=== PATIENT | male | born 1940 | race Caucasian/White ===

== ENCOUNTER → 2017-01-15 | Day surgery (SDC) | payer MEDICARE, OTHER ==
[~2017-01-15] VITALS: Ht 180.3 cm; Wt 93.0 kg
[~2017-01-15] MED LIST: ALFUZOSIN HCL E10 MG PO; ASPIR LOW81 MG PO; COZAAR25 M1 PO; OMEGA 3 FISH O1 EACH PO; TOPROL XL25 MG PO; ZOCOR40 MG PO
--- NOTE | ~2017-01-15 | PROC NOTE ---
[place], [place] PROCEDURE NOTE NAME: DAKSHA GALEAS JR UNIT #: [id number] ROOM: DOCTOR: AJ ZIMMERMANSOPHIA BIRTHDATE: [birth year] DOS: 01/15/2017 PREOPERATIVE DIAGNOSIS: Lower gastrointestinal bleed, history of partial colectomy for malignancy. POSTOPERATIVE DIAGNOSIS: Internal hemorrhoids, normal anastomosis. PROCEDURE: Colonoscopy. ENDOSCOPIST: Sophia Wild M.D. STEVEDORING SUPERVISOR: [id number]. ANESTHESIA: MAC. INDICATIONS: This is a 76-year-old gentleman with a history of lower GI bleed and internal hemorrhoids as well as a partial colectomy in the past for malignancy, who is here for the above-mentioned procedure. The procedure and its complications explained to the patient in detail preoperatively. Complications that were discussed included, but were not limited to bleeding, colon perforation, and missed lesions. He agreed to proceed. DESCRIPTION OF PROCEDURE: After identifying the patient, the patient was brought to the endoscopy suite and placed in the left lateral position. After time-out procedure was called, IV sedation was administered and a digital rectal exam was performed, which revealed internal hemorrhoids (grade 3), but there was no active bleeding that could be seen on the examining finger. There were no masses that could be felt with the examining finger. At this point, an adult colonoscope was now introduced into the anal canal and advanced sequentially into the rectum, sigmoid colon, descending colon, transverse colon, and ascending colon up to the cecum. The anastomosis was visualized and was within normal limits. The prep was within normal limits. Upon reaching the cecum, the scope was withdrawn. Total withdrawal time was approximately 6 minutes and 45 seconds. There were no obvious mucosal lesions that were identified. Upon retroflexion of the scope in the rectum, there was found to be internal hemorrhoids with no active bleeding. The scope was withdrawn and the patient was taken to the recovery room in stable fashion. There were no complications. Dr. Sophia Wild, the attending endoscopist, was present throughout the operating case. Based on these findings, the patient is recommended to not have any more colonoscopies since he is already 76 years old unless he has new symptoms related to his large intestine. [place], [place] PROCEDURE NOTE NAME: DAKSHA GALEAS JR UNIT #: [id number] ROOM: DOCTOR: SOPHIA WILD MD BIRTHDATE: [birth year] Sophia Wild MD CM:PROCNOTE:PROCEDURE NOTE [id number] SOPHIA WILD MD
== END | disposition home or self-care (01) ==
LOC: SDC 01-11 13:15
DX: K64.8 Other hemorrhoids (principal); K92.2 Gastrointestinal hemorrhage, unspecified; I25.2 Old myocardial infarction; I25.10 Atherosclerotic heart disease of native coronary artery without angina pectoris; Z98.0 Intestinal bypass and anastomosis status; Z85.038 Personal history of other malignant neoplasm of large intestine; Z85.828 Personal history of other malignant neoplasm of skin; Z83.3 Family history of diabetes mellitus; Z82.3 Family history of stroke; Z82.49 Family history of ischemic heart disease and other diseases of the circulatory system

== ENCOUNTER → 2017-01-29 | Day surgery (SDC) | payer MEDICARE, OTHER ==
[2017-01-25 11:15] VITALS: BP 117/62
[~2017-01-29] VITALS: Ht 182.8 cm; Wt 93.9 kg
[2017-01-29] VITALS (9 sets, daily range): BP systolic 126–194; BP diastolic 82–109
[~2017-01-29] MED LIST changes: +NORCO 5-325 TA1 EACH PO; +ZOCOR20 MG PO
--- NOTE | ~2017-01-29 | O ---
[place], [place] OPERATIVE NOTE NAME: [facility]AS JR [id number] UNIT #: [id number] ROOM: DOCTOR: SOPHIA WILD MD BIRTHDATE: [birth year] DOS: 01/29/2017 PREOPERATIVE DIAGNOSIS: Grade 2 internal hemorrhoids. POSTOPERATIVE DIAGNOSIS: Grade 2 internal hemorrhoids. PROCEDURE: Doppler guided hemorrhoidal artery ligation, rectoanal repair (4 o'clock position). SURGEON: Sophia Wild MD CAN HANDLER: None. ANESTHESIA: LMA. INDICATIONS: This is a 76-year-old gentleman with a history of symptomatic, grade 2 internal hemorrhoids who is here for the above-mentioned procedure. The procedure and its complications were explained to the patient in detail. Complications that were discussed included but were not limited to bleeding, recurrence and prolonged pain. He agreed to proceed. DESCRIPTION OF PROCEDURE: After identifying the patient, the patient was brought to the operating suite and laid in the supine position. After induction of general anesthesia, he was placed in lithotomy position and the parts were then painted and draped in the usual sterile fashion. A digital rectal exam was performed, which was within normal limits. The Doppler ligator probe was introduced and at 1, 3, 5, 7, 9 and 11 o'clock positions, arteries were identified with the help of Doppler signal and these were ligated with the help of 0 Vicryl in an interrupted fashion. At this point, the probe was removed and was readjusted and reinserted into the anal canal with the window which opened at approximately 4 o'clock position where the prolapsed segment of the hemorrhoid was visualized. With the help of 0 Vicryl, rectoanal repair was performed in order to repair the part of the internal hemorrhoids that was prolapsing. This was done in a running fashion. After that was performed, the suture was cut and the probe was removed. Rectal exam was performed and there was no bleeding that was visualized. A block with the help of 1% lidocaine with epinephrine was placed in a circumanal fashion for pain control. The patient was then placed back in a supine position and transferred after extubation to the recovery room. There were no complications. Dr. Sophia Wild, the attending surgeon, was present throughout the operating case. [place], [place] OPERATIVE NOTE NAME: DAKSHA GALEAS JR UNIT #: [id number] ROOM: DOCTOR: SOPHIA WILD MD BIRTHDATE: [birth year] Sophia Wild MD CM:OPRECORD:OPERATIVE NOTE [id number] SOPHIA WILD MD 01/29/17 1042 interface
== END | disposition home or self-care (01) ==
LOC: SDC 01-22 11:00
DX: K64.1 Second degree hemorrhoids (principal); I25.2 Old myocardial infarction; I25.10 Atherosclerotic heart disease of native coronary artery without angina pectoris; Z85.828 Personal history of other malignant neoplasm of skin; E78.00 Pure hypercholesterolemia, unspecified; Z83.3 Family history of diabetes mellitus; Z82.3 Family history of stroke; Z82.49 Family history of ischemic heart disease and other diseases of the circulatory system

== ENCOUNTER → 2017-02-02 | Outpatient (CLI) | payer MEDICARE, OTHER ==
[2017-02-02 11:17] LABS: BILIRUBIN NEGATIVE (NEGATIVE); BLOOD NEGATIVE (NEGATIVE); CLARITY CLEAR (CLEAR); COLOR YELLOW (YELLOW); GLUCOSE NEGATIVE (NEGATIVE); KETONE NEGATIVE (NEGATIVE); LEUKO ESTERASE NEGATIVE (NEGATIVE); NITRITE NEGATIVE (NEGATIVE); PROTEIN NEGATIVE (NEGATIVE); UROBILINOGEN 0.2 E.U./dl (0.2-1.0)
[2017-02-02 11:24] LABS: MUCOUS 1+; URINE REFLEX COMMENT NO (NO); WBC 0-2 wbc/hpf (0-5)
== END | disposition home or self-care (01) ==
LOC: LAB 10:50
PROVIDERS: Surgery
DX: R39.9 Unspecified symptoms and signs involving the genitourinary system (principal)

== ENCOUNTER → 2018-01-10 | Outpatient (CLI) | payer MEDICARE, OTHER ==
[2018-01-10 10:02] LABS: BASO # 0.1 10*3/uL (0.0-0.1); BASO % 0.8 % (0.0-1.0); EOS # 0.2 10*3/uL (0.0-0.4); EOS % 2.6 % (1.0-4.0); HEMATOCRIT 42.9 % (42.0-52.0); HEMOGLOBIN 14.1 g/dl (14.0-18.0); LYMPH # 1.5 10*3/uL (1.3-4.4); LYMPH % 23.1 % (27.0-41.0); MEAN CELL VOLUME 92.1 fl (80.0-94.0); MEAN CORPUSCULAR HGB 30.3 pg (27.0-31.0); MEAN CORPUSCULAR HGB CONC 32.9 g/dl (33.0-37.0); MONO # 0.8 10*3/uL (0.1-1.0); MONO % 11.6 % (3.0-9.0); NEUT % 61.6 % (47.0-73.0); PLATELET COUNT AUTOMATED 138 10*3/uL (130-400); RED BLOOD COUNT 4.66 10*6/uL (4.50-5.90); RED CELL DISTRI WIDTH 13.2 % (0-14.5); WHITE BLOOD COUNT 6.5 10*3/uL (4.8-10.8)
[2018-01-10 10:36] LABS: ALBUMIN 3.7 gm/dl (3.1-4.5); ALKALINE PHOSPHATASE 61 U/L (45-117); BILIRUBIN, DIRECT 0.2 mg/dL (0.0-0.2); BUN 14 mg/dl (7-24); CHLORIDE 106 mmol/L (98-107); CHOLESTEROL 252 mg/dL (<200); CREATININE 1.22 mg/dL (0.70-1.30); HDL CHOLESTEROL 52 mg/dl (40-60); LDL CHOLESTEROL 175 mg/dL (9-159); POTASSIUM 4.5 mmol/L (3.5-5.1); SGOT/AST 17 IU/L (3-35); SGPT/ALT 18 U/L (12-78); SODIUM 141 mmol/L (136-145); THYROXINE (T4) TOTAL 7.6 ug/dl (4.5-12.1); TOTAL PROTEIN 7.2 gm/dL (6.4-8.2); TRIGLYCERIDES 124 mg/dl (<150); VLDL CHOLESTEROL 25 mg/dL (6-40)
== END | disposition home or self-care (01) ==
LOC: LAB 09:43
PROVIDERS: Family Medicine
DX: I10 Essential (primary) hypertension (principal); N40.0 Benign prostatic hyperplasia without lower urinary tract symptoms

== ENCOUNTER → 2018-02-04 | Outpatient (CLI) | payer MEDICARE, OTHER | END | disposition home or self-care (01) | LOC: RAD 09:56 | DX: M51.36 Other intervertebral disc degeneration, lumbar region (principal); M40.56 Lordosis, unspecified, lumbar region; R10.9 Unspecified abdominal pain ==

== ENCOUNTER 2018-11-19 17:15 | Emergency (ER) | payer MEDICARE, OTHER ==
[~2018-11-19] VITALS: Ht 182.8 cm; Wt 90.7 kg
[2018-11-19] MEDS ORDERED: NAPROSYN500 MG PO (17:31)
[2018-11-19] MEDS ORDERED: KEFLEX500 M1 PO (17:31)
== END 2018-11-19 17:46 | disposition home or self-care (01) ==
LOC: ED 17:15
DX: S61.211A Laceration without foreign body of left index finger without damage to nail, initial encounter (principal); R03.0 Elevated blood-pressure reading, without diagnosis of hypertension; Z23 Encounter for immunization; Z79.899 Other long term (current) drug therapy; Z79.82 Long term (current) use of aspirin; W45.8XXA Other foreign body or object entering through skin, initial encounter; Y93.89 Activity, other specified; Y92.89 Other specified places as the place of occurrence of the external cause; Y99.8 Other external cause status

== ENCOUNTER → 2018-12-23 | Outpatient (CLI) | payer MEDICARE, OTHER ==
[~2018-12-23] MED LIST changes: +KEFLEX500 M1 PO; +NAPROSYN500 MG PO
[2018-12-23 10:08] LABS: ALBUMIN 3.4 gm/dl (3.1-4.5); ALKALINE PHOSPHATASE 54 U/L (45-117); BASO # 0.1 10*3/uL (0.0-0.1); BASO % 0.9 % (0.0-1.0); BILIRUBIN, DIRECT 0.2 mg/dL (0.0-0.2); BUN 16 mg/dl (7-24); CHLORIDE 108 mmol/L (98-107); CHOLESTEROL 175 mg/dL (<200); CREATININE 1.08 mg/dL (0.70-1.30); EOS # 0.2 10*3/uL (0.0-0.4); EOS % 3.8 % (1.0-4.0); HDL CHOLESTEROL 52 mg/dl (40-60); HEMOGLOBIN 13.5 g/dl (14.0-18.0); LDL CHOLESTEROL 100 mg/dL (9-159); LYMPH # 1.4 10*3/uL (1.3-4.4); LYMPH % 24.7 % (27.0-41.0); MEAN CELL VOLUME 92.8 fl (80.0-94.0); MEAN CORPUSCULAR HGB 30.5 pg (27.0-31.0); MEAN CORPUSCULAR HGB CONC 32.9 g/dl (33.0-37.0); MEAN PLATELET VOLUME 10.3 fl (9.6-12.3); MONO # 0.7 10*3/uL (0.1-1.0); MONO % 11.7 % (3.0-9.0); NEUT # 3.4 10*3/uL (2.3-7.9); NEUT % 58.4 % (47.0-73.0); PLATELET COUNT AUTOMATED 140 10*3/uL (130-400); POTASSIUM 4.1 mmol/L (3.5-5.1); RED BLOOD COUNT 4.42 10*6/uL (4.50-5.90); RED CELL DISTRI WIDTH 13.1 % (0-14.5); SGOT/AST 16 IU/L (3-35); SGPT/ALT 22 U/L (12-78); SODIUM 143 mmol/L (136-145); TOTAL PROTEIN 7.2 gm/dL (6.4-8.2); TRIGLYCERIDES 117 mg/dl (<150); VLDL CHOLESTEROL 23 mg/dL (6-40); WHITE BLOOD COUNT 5.8 10*3/uL (4.8-10.8)
== END | disposition home or self-care (01) ==
LOC: LAB 08:49
PROVIDERS: Family Medicine
DX: I25.10 Atherosclerotic heart disease of native coronary artery without angina pectoris (principal); I10 Essential (primary) hypertension; E78.5 Hyperlipidemia, unspecified

== ENCOUNTER → 2020-01-13 | Outpatient (CLI) | payer MEDICARE ==
[2020-01-13 09:50] LABS: BASO # 0.1 10*3/uL (0.0-0.1); BASO % 0.8 % (0.0-1.0); EOS # 0.2 10*3/uL (0.0-0.4); EOS % 3.8 % (1.0-4.0); HEMATOCRIT 45.1 % (42.0-52.0); HEMOGLOBIN 14.5 g/dl (14.0-18.0); LYMPH # 1.6 10*3/uL (1.3-4.4); LYMPH % 26.6 % (27.0-41.0); MEAN CORPUSCULAR HGB 29.9 pg (27.0-31.0); MEAN CORPUSCULAR HGB CONC 32.2 g/dl (33.0-37.0); MEAN PLATELET VOLUME 10.2 fl (9.6-12.3); MONO # 0.8 10*3/uL (0.1-1.0); MONO % 12.7 % (3.0-9.0); NEUT # 3.4 10*3/uL (2.3-7.9); NEUT % 55.9 % (47.0-73.0); PLATELET COUNT AUTOMATED 145 10*3/uL (130-400); RED BLOOD COUNT 4.85 10*6/uL (4.50-5.90); WHITE BLOOD COUNT 6.1 10*3/uL (4.8-10.8)
[2020-01-13 10:20] LABS: ALBUMIN 3.6 gm/dl (3.1-4.5); ALKALINE PHOSPHATASE 57 U/L (45-117); BILIRUBIN, DIRECT 0.2 mg/dL (0.0-0.2); BUN 16 mg/dl (7-24); CHLORIDE 105 mmol/L (98-107); CHOLESTEROL 166 mg/dL (<200); CREATININE 1.15 mg/dL (0.70-1.30); HDL CHOLESTEROL 57 mg/dl (40-60); LDL CHOLESTEROL 90 mg/dL (9-159); POTASSIUM 4.6 mmol/L (3.5-5.1); SGOT/AST 23 IU/L (3-35); SGPT/ALT 27 U/L (12-78); SODIUM 139 mmol/L (136-145); THYROXINE (T4) TOTAL 9.1 ug/dl (4.5-12.1); TOTAL PROTEIN 7.1 gm/dL (6.4-8.2); TRIGLYCERIDES 94 mg/dl (<150); VLDL CHOLESTEROL 19 mg/dL (6-40)
== END | disposition home or self-care (01) ==
LOC: LAB 09:28
PROVIDERS: Family Medicine
DX: Z00.00 Encounter for general adult medical examination without abnormal findings (principal); Z12.5 Encounter for screening for malignant neoplasm of prostate; I10 Essential (primary) hypertension; E55.9 Vitamin D deficiency, unspecified; Z79.899 Other long term (current) drug therapy

== ENCOUNTER 2020-11-01 11:18 | Emergency (ER) | payer MEDICARE ==
[~2020-11-01] VITALS: Ht 180.3 cm; Wt 81.6 kg
[2020-11-01] MEDS ORDERED: ZITHROMAX250 MG PO (13:44)
[2020-11-01] MEDS ORDERED: TESSALON PERLE100 M1 PO (13:44)
== END 2020-11-01 13:48 | disposition home or self-care (01) ==
LOC: ED 11:18
DX: U07.1 COVID-19 (principal); Z79.899 Other long term (current) drug therapy; Z79.82 Long term (current) use of aspirin

== ENCOUNTER 2020-11-27 03:53 | Emergency (ER) | payer MEDICARE ==
[~2020-11-27] VITALS: Ht 180.3 cm; Wt 83.9 kg
[~2020-11-27 03:53] MED LIST changes: +TESSALON PERLE100 M1 PO; +ZITHROMAX250 MG PO
[2020-11-27 04:20] LABS: BILIRUBIN 1+ (Negative); BLOOD 2+ (Negative); CLARITY Clear (Clear); COLOR Orange (Yellow); GLUCOSE Negative (Negative); KETONE Negative (Negative); LEUKO ESTERASE 1+ (Negative); NITRITE Positive (Negative); SPECIFIC GRAVITY 1.015 (1.001-1.030)
[2020-11-27 04:26] LABS: BASO % 0.1 % (0.0-1.0); EOS # 0.1 10*3/uL (0.0-0.4); HEMATOCRIT 36.9 % (42.0-52.0); LYMPH # 0.8 10*3/uL (1.3-4.4); LYMPH % 10.2 % (27.0-41.0); MEAN CORPUSCULAR HGB 29.7 pg (27.0-31.0); MEAN CORPUSCULAR HGB CONC 32.2 g/dl (33.0-37.0); MEAN PLATELET VOLUME 10.4 fl (9.6-12.3); MONO # 0.8 10*3/uL (0.1-1.0); MONO % 10.7 % (3.0-9.0); PLATELET COUNT AUTOMATED 110 10*3/uL (130-400); RED BLOOD COUNT 4.01 10*6/uL (4.50-5.90); RED CELL DISTRI WIDTH 14.4 % (0-14.5); WHITE BLOOD COUNT 7.8 10*3/uL (4.8-10.8)
[2020-11-27 04:36] LABS: RBC 21-30 rbc/hpf (0-2)
[2020-11-27 04:37] LABS: BACTERIA TRACE
[2020-11-27 04:42] LABS: BUN 18 mg/dl (7-24); CHLORIDE 102 mmol/L (98-107); CREATININE 1.14 mg/dL (0.70-1.30); POTASSIUM 4.1 mmol/L (3.5-5.1); SODIUM 134 mmol/L (136-145)
[2020-11-27] MEDS ORDERED: CIPRO500 MG PO (04:49)
== END 2020-11-27 05:01 | disposition home or self-care (01) ==
LOC: ED 03:53
PROVIDERS: Internal Medicine
DX: N40.0 Benign prostatic hyperplasia without lower urinary tract symptoms (principal); D64.9 Anemia, unspecified; N39.0 Urinary tract infection, site not specified; R33.9 Retention of urine, unspecified; Z79.899 Other long term (current) drug therapy; Z79.82 Long term (current) use of aspirin

== ENCOUNTER 2020-11-30 18:01 | Emergency (ER) | payer MEDICARE ==
[~2020-11-30] VITALS: Ht 180.3 cm; Wt 83.9 kg
[~2020-11-30 18:01] MED LIST changes: +CIPRO500 MG PO
[2020-11-30 18:40] LABS: BASO % 0.2 % (0.0-1.0); EOS # 0.1 10*3/uL (0.0-0.4); HEMATOCRIT 32.5 % (42.0-52.0); LYMPH # 0.6 10*3/uL (1.3-4.4); LYMPH % 12.3 % (27.0-41.0); MEAN CELL VOLUME 93.7 fl (80.0-94.0); MEAN PLATELET VOLUME 11.1 fl (9.6-12.3); MONO # 0.6 10*3/uL (0.1-1.0); MONO % 12.3 % (3.0-9.0); NEUT # 3.6 10*3/uL (2.3-7.9); NEUT % 72.8 % (47.0-73.0); PLATELET COUNT AUTOMATED 95 10*3/uL (130-400); RED BLOOD COUNT 3.47 10*6/uL (4.50-5.90); RED CELL DISTRI WIDTH 15.1 % (0-14.5)
[2020-11-30 18:51] LABS: BILIRUBIN 1+ (Negative); BLOOD 1+ (Negative); CLARITY Turbid (Clear); COLOR Red (Yellow); GLUCOSE Negative (Negative); KETONE Negative (Negative); LEUKO ESTERASE 3+ (Negative); NITRITE Positive (Negative); SPECIFIC GRAVITY 1.025 (1.001-1.030); UROBILINOGEN 0.2 E.U./dl (0.0-1.0)
[2020-11-30 18:52] LABS: ACT PARTIAL THROMBO TIME 26.5 SECONDS (20.0-32.1); BUN 19 mg/dl (7-24); CHLORIDE 107 mmol/L (98-107); CREATININE 1.19 mg/dL (0.70-1.30); POTASSIUM 3.9 mmol/L (3.5-5.1); SODIUM 138 mmol/L (136-145)
[2020-11-30 18:54] LABS: ALBUMIN 2.8 gm/dl (3.1-4.5); BILIRUBIN, DIRECT 0.2 mg/dL (0.0-0.2); TOTAL PROTEIN 6.2 gm/dL (6.4-8.2)
[2020-11-30 19:05] LABS: RBC TNTC rbc/hpf (0-2)
== END 2020-11-30 22:00 | disposition short-term general hospital (02) ==
LOC: ED 18:01
PROVIDERS: Emergency Medicine
DX: U07.1 COVID-19 (principal); R31.9 Hematuria, unspecified; R33.9 Retention of urine, unspecified; I25.2 Old myocardial infarction; I25.10 Atherosclerotic heart disease of native coronary artery without angina pectoris; E78.00 Pure hypercholesterolemia, unspecified; Z79.899 Other long term (current) drug therapy; Z79.2 Long term (current) use of antibiotics; Z79.82 Long term (current) use of aspirin; Z98.61 Coronary angioplasty status

== ENCOUNTER → 2020-12-09 | Outpatient (CLI) | payer MEDICARE ==
[2020-12-09 11:13] LABS: HEMATOCRIT 33.2 % (42.0-52.0); MEAN CELL VOLUME 93.8 fl (80.0-94.0); MEAN CORPUSCULAR HGB 29.7 pg (27.0-31.0); MEAN CORPUSCULAR HGB CONC 31.6 g/dl (33.0-37.0); MEAN PLATELET VOLUME 10.5 fl (9.6-12.3); RED BLOOD COUNT 3.54 10*6/uL (4.50-5.90); RED CELL DISTRI WIDTH 14.7 % (0-14.5); WHITE BLOOD COUNT 4.4 10*3/uL (4.8-10.8)
[2020-12-09 11:26] LABS: BUN 9 mg/dl (7-24); CHLORIDE 107 mmol/L (98-107); POTASSIUM 3.7 mmol/L (3.5-5.1); SODIUM 141 mmol/L (136-145)
== END | disposition home or self-care (01) ==
LOC: LAB 10:40
PROVIDERS: ATTEND Family Medicine
DX: Z01.818 Encounter for other preprocedural examination (principal); I25.10 Atherosclerotic heart disease of native coronary artery without angina pectoris; R97.20 Elevated prostate specific antigen [PSA]; Z79.899 Other long term (current) drug therapy

== ENCOUNTER → 2021-03-20 | Outpatient (CLI) | payer MEDICARE | END | disposition home or self-care (01) | LOC: US 00:12 | PROVIDERS: ATTEND Family Medicine | DX: M71.21 Synovial cyst of popliteal space [Baker], right knee (principal); I73.9 Peripheral vascular disease, unspecified ==

== ENCOUNTER → 2022-03-13 | Outpatient (CLI) | payer MEDICARE, OTHER | END | disposition home or self-care (01) | LOC: RESCLI 10:44 | PROVIDERS: ATTEND Internal Medicine | DX: Z76.89 Persons encountering health services in other specified circumstances (principal); I48.91 Unspecified atrial fibrillation; I25.10 Atherosclerotic heart disease of native coronary artery without angina pectoris; I50.9 Heart failure, unspecified; I11.0 Hypertensive heart disease with heart failure; Z79.899 Other long term (current) drug therapy; Z79.82 Long term (current) use of aspirin ==

== ENCOUNTER → 2022-10-29 | Outpatient (CLI) | payer MEDICARE, OTHER ==
[2022-10-29 10:34] LABS: BASO # 0.1 10*3/uL (0.0-0.1); BASO % 0.7 % (0.0-1.0); EOS # 0.2 10*3/uL (0.0-0.4); EOS % 2.5 % (1.0-4.0); HEMATOCRIT 47.3 % (42.0-52.0); LYMPH # 1.4 10*3/uL (1.3-4.4); LYMPH % 19.9 % (27.0-41.0); MEAN CELL VOLUME 90.6 fl (80.0-94.0); MEAN CORPUSCULAR HGB 29.9 pg (27.0-31.0); MEAN PLATELET VOLUME 10.1 fl (9.6-12.3); MONO # 0.7 10*3/uL (0.1-1.0); MONO % 10.5 % (3.0-9.0); NEUT # 4.5 10*3/uL (2.3-7.9); NEUT % 66.1 % (47.0-73.0); PLATELET COUNT AUTOMATED 150 10*3/uL (130-400); RED BLOOD COUNT 5.22 10*6/uL (4.50-5.90); RED CELL DISTRI WIDTH 13.7 % (0-14.5); WHITE BLOOD COUNT 6.8 10*3/uL (4.8-10.8)
[2022-10-29 11:23] LABS: ALKALINE PHOSPHATASE 66 U/L (46-116); BUN 18 mg/dl (9-23); CHLORIDE 106 mmol/L (98-107); CHOLESTEROL 183 mg/dL (<200); LDL CHOLESTEROL 106 mg/dL (9-159); POTASSIUM 4.3 mmol/L (3.4-5.1); SGPT/ALT 20 U/L (10-49); TOTAL PROTEIN 7.2 gm/dL (6.0-8.0); TRIGLYCERIDES 127 mg/dl (<150)
== END | disposition home or self-care (01) ==
LOC: RESCLI 00:23
PROVIDERS: Internal Medicine; ATTEND Emergency Medicine
DX: I11.0 Hypertensive heart disease with heart failure (principal); I50.20 Unspecified systolic (congestive) heart failure; Z13.9 Encounter for screening, unspecified; N40.1 Benign prostatic hyperplasia with lower urinary tract symptoms; I25.10 Atherosclerotic heart disease of native coronary artery without angina pectoris; K21.9 Gastro-esophageal reflux disease without esophagitis; N40.0 Benign prostatic hyperplasia without lower urinary tract symptoms; E78.5 Hyperlipidemia, unspecified; Z86.711 Personal history of pulmonary embolism; Z98.890 Other specified postprocedural states; Z72.89 Other problems related to lifestyle; Z79.82 Long term (current) use of aspirin; Z79.899 Other long term (current) drug therapy

== ENCOUNTER → 2024-01-27 | Outpatient (CLI) | payer MEDICARE, OTHER ==
[2024-01-27 09:14] LABS: BASO # 0.1 10*3/uL (0.0-0.1); BASO % 0.7 % (0.0-1.0); EOS # 0.2 10*3/uL (0.0-0.4); EOS % 3.4 % (1.0-4.0); HEMATOCRIT 42.8 % (42.0-52.0); LYMPH # 1.5 10*3/uL (1.3-4.4); LYMPH % 21.6 % (27.0-41.0); MEAN CELL VOLUME 94.9 fl (80.0-94.0); MEAN CORPUSCULAR HGB 30.6 pg (27.0-31.0); MEAN CORPUSCULAR HGB CONC 32.2 g/dl (33.0-37.0); MEAN PLATELET VOLUME 10.5 fl (9.6-12.3); MONO # 0.8 10*3/uL (0.1-1.0); MONO % 12.2 % (3.0-9.0); NEUT # 4.1 10*3/uL (2.3-7.9); NEUT % 61.7 % (47.0-73.0); PLATELET COUNT AUTOMATED 152 10*3/uL (130-400); RED BLOOD COUNT 4.51 10*6/uL (4.50-5.90); RED CELL DISTRI WIDTH 13.1 % (0-14.5); WHITE BLOOD COUNT 6.7 10*3/uL (4.8-10.8)
[2024-01-27 09:41] LABS: POTASSIUM 4.8 mmol/L (3.4-5.1); TOTAL PROTEIN 7.1 gm/dL (6.0-8.0)
[2024-01-27 09:51] LABS: VITAMIN D, 25-HYDROXY 56.2 ng/mL (30-100)
== END ==
LOC: RESCLI 08:06
PROVIDERS: Student in an Organized Health Care Education/Training Program; ATTEND Family Medicine
DX: Z12.5 Encounter for screening for malignant neoplasm of prostate (principal); I25.10 Atherosclerotic heart disease of native coronary artery without angina pectoris; I50.20 Unspecified systolic (congestive) heart failure; Z13.9 Encounter for screening, unspecified; E78.5 Hyperlipidemia, unspecified; Z86.711 Personal history of pulmonary embolism; Z98.890 Other specified postprocedural states; Z79.899 Other long term (current) drug therapy

== ENCOUNTER → 2024-12-27 | Outpatient (CLI) | payer MEDICARE, OTHER | END | disposition home or self-care (01) | LOC: LAB 10:29 | PROVIDERS: ATTEND Family Medicine | DX: I25.10 Atherosclerotic heart disease of native coronary artery without angina pectoris (principal) ==

== ENCOUNTER → 2025-01-08 | Outpatient (CLI) | payer MEDICARE, OTHER | END | disposition home or self-care (01) | LOC: US 12:20 | PROVIDERS: ATTEND Urology | DX: N28.1 Cyst of kidney, acquired (principal); N32.3 Diverticulum of bladder; N40.0 Benign prostatic hyperplasia without lower urinary tract symptoms; K80.20 Calculus of gallbladder without cholecystitis without obstruction ==

== ENCOUNTER → 2025-02-23 | Outpatient (CLI) | payer MEDICARE, OTHER | END | disposition home or self-care (01) | LOC: RESCLI 14:55 | PROVIDERS: ATTEND Internal Medicine | DX: N40.1 Benign prostatic hyperplasia with lower urinary tract symptoms (principal); I25.10 Atherosclerotic heart disease of native coronary artery without angina pectoris; I11.0 Hypertensive heart disease with heart failure; I50.20 Unspecified systolic (congestive) heart failure; E78.5 Hyperlipidemia, unspecified; K21.9 Gastro-esophageal reflux disease without esophagitis; L24.9 Irritant contact dermatitis, unspecified cause; Z86.711 Personal history of pulmonary embolism; Z79.899 Other long term (current) drug therapy; Z98.890 Other specified postprocedural states ==

== ENCOUNTER → 2025-07-10 | Outpatient (CLI) | payer MEDICARE, OTHER ==
[~2025-07-10] MED LIST changes: +ALDACTONE25 M1 PO; +AMIODARONE HYD200 MG PO; +FLOMAX0.4 MG PO; +ISOSORBIDE MONO10 MG PO; +LOSARTAN POTASS25 M1 PO; +PLAVIX75 M1 PO; +PROSCAR5 M1 PO; +XARE15TA PO; +XARE20MG PO
== END ==
LOC: RAD 15:09
PROVIDERS: ATTEND Family Medicine
DX: M19.011 Primary osteoarthritis, right shoulder (principal); M77.8 Other enthesopathies, not elsewhere classified; M25.511 Pain in right shoulder

== ENCOUNTER 2025-07-12 03:29 | Inpatient (IN) | payer MEDICARE, OTHER ==
[~2025-07-12] VITALS: Ht 180.3 cm; Wt 92.1 kg
[~2025-07-12 03:29] MED LIST changes: -ALDACTONE25 M1 PO; -AMIODARONE HYD200 MG PO; -FLOMAX0.4 MG PO; -ISOSORBIDE MONO10 MG PO; -LOSARTAN POTASS25 M1 PO; -PLAVIX75 M1 PO; -PROSCAR5 M1 PO; -XARE15TA PO; -XARE20MG PO
[2025-07-12 03:37] VITALS: BP 107/53
[2025-07-12 04:06] LABS: BASO # 0.0 10*3/uL (0.0-0.1); BASO % 0.7 % (0.0-1.0); EOS # 0.3 10*3/uL (0.0-0.4); EOS % 5.1 % (1.0-4.0); MEAN CELL VOLUME 93.3 fl (80.0-94.0); MEAN CORPUSCULAR HGB 29.4 pg (27.0-31.0); MEAN PLATELET VOLUME 9.8 fl (9.6-12.3); MONO # 0.9 10*3/uL (0.1-1.0); MONO % 15.2 % (3.0-9.0); NEUT # 3.7 10*3/uL (2.3-7.9); NEUT % 64.7 % (47.0-73.0); NUCLEATED RED BLOOD CELL 0.0 % (0.0-0.0); NUCLEATED RED BLOOD CELL 0.0 10*3/uL (0.0-0.0); PLATELET COUNT AUTOMATED 174 10*3/uL (130-400); RED CELL DISTRI WIDTH 14.6 % (0-14.5)
[2025-07-12 04:23] LABS: BUN 28.0 mg/dl (9-23)
[2025-07-12] MEDS ORDERED: TRANEXAMIC ACID IN NACL,ISO-OS 100 ML IV ONE (04:25)
[2025-07-12] MEDS ORDERED: Acetaminophen/Hydrocodone 5 MG/325 MG TABLET PO PRN (06:10)
[2025-07-12] MEDS ORDERED: Ondansetron Hydrochloride 4 MG/2 ML VIAL IV PRN (06:10)
[2025-07-12] MEDS ORDERED: BISACODYL 5 MG TAB PO PRN (06:10)
[2025-07-12] MEDS ORDERED: BISACODYL 10 MG SUPP R PRN (06:10)
[2025-07-12] MEDS ORDERED: SODIUM CHLORIDE 0.9% 1,000 ML IV ONE (06:25)
[2025-07-12] MEDS ORDERED: XARE20MG PO (07:10)
[2025-07-12 07:43] VITALS: BP 131/54
[2025-07-12] MEDS ORDERED: MAGNESIUM CITRATE 296 ML BOT PO ONE ×2 (12:05→16:20)
[2025-07-12 12:35] VITALS: BP 130/82
[2025-07-12 12:37] VITALS: BP 130/82; BP 131/90
[2025-07-12] MEDS ORDERED: ALDACTONE25 M1 PO (12:50)
[2025-07-12] MEDS ORDERED: PLAVIX75 M1 PO (12:52)
[2025-07-12] MEDS ORDERED: XARE15TA PO (12:52)
[2025-07-12] MEDS ORDERED: AMIODARONE HYD200 MG PO (12:55)
[2025-07-12] MEDS ORDERED: FLOMAX0.4 MG PO (12:56)
[2025-07-12] MEDS ORDERED: PROSCAR5 M1 PO (12:57)
[2025-07-12] MEDS ORDERED: LOSARTAN POTASS25 M1 PO (12:58)
[2025-07-12] MEDS ORDERED: Na Phos, Dibasic/Na Phos, Mo 1 EA BOT R ONE (14:45)
[2025-07-12 15:46] VITALS: BP 129/52
[2025-07-12] MEDS ORDERED: ISOSORBIDE MONO10 MG PO (19:14)
[2025-07-12 20:00] VITALS: BP 127/66
[2025-07-13] VITALS (7 sets, daily range): BP systolic 111–139; BP diastolic 66–87
[2025-07-13] MEDS ORDERED: Na Phos, Dibasic/Na Phos, Mo 1 EA BOT R SCH (05:00)
[2025-07-13 07:09] LABS: BASO # 0.0 10*3/uL (0.0-0.1); BASO % 0.7 % (0.0-1.0); EOS # 0.3 10*3/uL (0.0-0.4); EOS % 5.6 % (1.0-4.0); MEAN CELL VOLUME 94.1 fl (80.0-94.0); MEAN CORPUSCULAR HGB 29.3 pg (27.0-31.0); MEAN PLATELET VOLUME 10.0 fl (9.6-12.3); MONO # 0.9 10*3/uL (0.1-1.0); MONO % 14.4 % (3.0-9.0); NEUT # 4.0 10*3/uL (2.3-7.9); NEUT % 67.6 % (47.0-73.0); NUCLEATED RED BLOOD CELL 0.0 % (0.0-0.0); NUCLEATED RED BLOOD CELL 0.0 10*3/uL (0.0-0.0); PLATELET COUNT AUTOMATED 174 10*3/uL (130-400); RED CELL DISTRI WIDTH 14.7 % (0-14.5)
[2025-07-13] MEDS ORDERED: EPINEPHrine/Lidocaine Hydroc 20 ML VIAL ONE (07:35)
[2025-07-13] MEDS ORDERED: Lidocaine Hydrochloride 10 ML SYR UR ONE (07:36)
[2025-07-13] MEDS ORDERED: Gelatin Sponge 1 EACH SPON T ONE (07:37)
[2025-07-13 07:50] LABS: VITAMIN D, 25-HYDROXY 53.1 ng/mL (30-100)
[2025-07-13 07:51] LABS: FREE T4 1.35 ng/dl (0.89-1.76); LDL CHOLESTEROL 116 mg/dL (9-159); SGPT/ALT 10 U/L (5-49)
[2025-07-13 07:52] LABS: BUN 15 mg/dl (9-23)
[2025-07-13] MEDS ORDERED: Lactated Ringer's Solution 1,000 ML IV ONE (08:05)
[2025-07-13] MEDS ORDERED: ACETAMINOPHEN 100 ML IV ONE (08:05)
[2025-07-13] MEDS ORDERED: Lidocaine Hydrochloride 30 ML VIAL ONE (08:22)
[2025-07-13] MEDS ORDERED: ISOSORBIDE MONONITRATE 30 MG TAB PO SCH (10:00)
[2025-07-13] MEDS ORDERED: Amiodarone Hydrochloride 200 MG TAB PO SCH (10:00)
[2025-07-13] MEDS ORDERED: FINASTERIDE 5 MG TAB PO SCH (10:00)
[2025-07-13] MEDS ORDERED: SPIRONOLACTONE 25 MG TAB PO SCH (10:00)
[2025-07-13] MEDS ORDERED: Ondansetron Hydrochloride 4 MG/2 ML VIAL IV ONE (12:30)
[2025-07-13] MEDS ORDERED: Dexamethasone Sodium Phospha 4 MG/ML VIAL IV ONE (12:30)
[2025-07-13] MEDS ORDERED: Lidocaine Hydrochloride 5 ML VIAL IV ONE (12:30)
[2025-07-13] MEDS ORDERED: Ketamine Hydrochloride 50 MG/5 ML SYRINGE IV ONE (12:30)
[2025-07-13] MEDS ORDERED: SEVOFLURANE 250 ML BOT INH ONE (12:30)
[2025-07-13] MEDS ORDERED: GLYCOPYRROLATE 0.4 MG/2 ML VIAL IV ONE (12:30)
[2025-07-13] MEDS ORDERED: PROPOFOL 200 MG/20 ML VIAL IV ONE (12:30)
[2025-07-13] MEDS ORDERED: Phenylephrine Hydrochloride 1 MG/10 ML SYRINGE IV ONE (12:30)
[2025-07-13] MEDS ORDERED: METOPROLOL SUCCINATE XR 25 MG TAB PO SCH (22:00)
== END 2025-07-13 13:10 | disposition home or self-care (01) | DRG 347 ==
LOC: ED 03:29 → 5E 05:40 → EDHOLD 05:40 → 5E 11:36
PROVIDERS: Internal Medicine; ADMIT Internal Medicine; ATTEND Internal Medicine
PROC: 06BY0ZC Excision of Hemorrhoidal Plexus, Open Approach (ICD-10-PCS; principal; 2025-07-13)
PROC: 06LY0CC Occlusion of Hemorrhoidal Plexus with Extraluminal Device, Open Approach (ICD-10-PCS; 2025-07-13)
DX: K64.4 Residual hemorrhoidal skin tags (principal); N17.0 Acute kidney failure with tubular necrosis; N18.9 Chronic kidney disease, unspecified; D64.9 Anemia, unspecified; Z66 Do not resuscitate; N40.0 Benign prostatic hyperplasia without lower urinary tract symptoms; I25.10 Atherosclerotic heart disease of native coronary artery without angina pectoris; E78.5 Hyperlipidemia, unspecified; R73.9 Hyperglycemia, unspecified; Z79.899 Other long term (current) drug therapy; Z79.01 Long term (current) use of anticoagulants; Z95.5 Presence of coronary angioplasty implant and graft; Z79.2 Long term (current) use of antibiotics; Z90.49 Acquired absence of other specified parts of digestive tract; Z98.42 Cataract extraction status, left eye; Z98.41 Cataract extraction status, right eye; Z95.1 Presence of aortocoronary bypass graft; Z83.3 Family history of diabetes mellitus; I25.2 Old myocardial infarction; Z82.3 Family history of stroke; Z82.49 Family history of ischemic heart disease and other diseases of the circulatory system